=== PATIENT | male | born 1975 | race Caucasian/White ===

== ENCOUNTER → 2020-10-31 18:20 | Outpatient (CLI) | payer OTHER, SELFPAY ==
--- NOTE | 2020-10-31 18:25 | US_ITS ---
Exam: Localized ultrasound of the right neck. REASON FOR EXAM: Male, 45 years old. LUMP RIGHT NECK TECHNIQUE: Ultrasound evaluation of the area of interest was performed with real-time and static palacios-scale imaging. COMPARISON: None. FINDINGS: The area of clinical concern, there is a heterogeneous irregular lobulated generally hypoechoic mass measuring 2.0 x 1.8 x 1.3 cm. There is peripheral vascularity. Another adjacent hypoechoic structure measuring 2.1 cm may be a lymph node. No focal fluid collections. US/Head/Neck Soft Tissue IMPRESSION: Suspicious heterogeneous mixed echogenicity mass in the area of clinical concern. The appearance is not characteristic of a lymph node. Suggest further evaluation with contrast CT. Electronically Signed: Kenneth Lacey MD at 23:38 EST , Service support ,
== END ==
PROVIDERS: PCP Family Medicine; Referring Provider Family Medicine; Visit Provider Family Medicine
DX: R22.1 Localized swelling, mass and lump, neck (principal)
CPT/HCPCS: 76536

== ENCOUNTER 2020-11-05 10:48 | Emergency (ER) | payer OTHER, SELFPAY ==
[2020-11-05 10:49] VITALS: BP 152/89; PULSE 66; RESP 16; TEMP 36.5; O2SAT 97; BMI 30.8
--- NOTE | 2020-11-05 11:12 | CT_ITS ---
STUDY: CT SOFT TISSUE NECK WITH CONTRAST REASON FOR EXAM: Male, 45 years old. RIGHT POSTERIOR AURICULAR MASS SEEN ON US, AOI MARKED WITH BB, HAS DBS PLACED FOR TREMORS RADIATION DOSAGE (If Supplied By Facility): CTDIvol = ( 16.58 ) mGy, DLP = ( 534.50 ) mGycm TECHNIQUE: The patient was scanned in a multi-detector CT scanner. High resolution transaxial imaging was performed following intravenous administration of IV 75mL Isovue-370. Sagittal and coronal images were reconstructed. Individualized dose optimization techniques were used for this CT. COMPARISON: Ultrasound to FINDINGS: 1.2 x 1.6 cm oval mass of soft tissue attenuation within the posterior aspect of the right parotid gland worrisome for tumor namely pleomorphic adenoma. This corresponds to the patient''s palpable abnormality in the abnormality seen on recent ultrasound. Normal bilateral box toe stitcher spaces. Normal bilateral parapharyngeal spaces. Normal bilateral carotid spaces. Normal bilateral sublingual and submandibular glands and spaces. Normal visualized nasopharynx. Normal retropharyngeal space. Normal perivertebral space. Normal visualized bilateral faucial tonsils. The visualized tongue, tongue base and oropharynx are normal. The visualized cervical lymph nodes (levels I-) are within normal size limits, and maintain normal morphology. There is no demonstrated solid or cystic mass lesion. There is no abnormal contrast enhancement. Normal epiglottis, bilateral vallecula and hypopharynx. The pre-epiglottic and paraglottic adipose spaces are normal. Normal visualized bilateral piriform sinuses, aryepiglottic folds, vocal cords, and arytenoid-cricoid articulations. Normal subglottic trachea. Normal bilateral lobes of the thyroid gland. Normal visualized pulmonary apices. Normal visualized paranasal sinuses. Normal visualized cervical spine. CT/Soft Tissue Neck WITH Contrast IMPRESSION: 1.2 x 1.6 cm of the oval mass of the posterior aspect of the right parotid gland corresponding to the patient''s palpable abnormality worrisome for tumor, namely pleomorphic adenoma. Electronically Signed: Curtis Rea MD at 12:12 EST Tel , Service support ,
[2020-11-05 11:24] LABS: Absolute Lymphocyte Count 1.64 X10^3/uL (0.83-4.51); Absolute Neutrophil Count 2.7 X10^3/uL (2.0-7.7); Basophil# 0.03 X10^3/uL; Basophil% 0.6 % (0-1); Eosinophil# 0.15 X10^3/uL; Hematocrit 43.3 % (40-54); Hemoglobin 14.4 g/dL (13.0-16.5); Lymphocyte # 1.64 X10^3/ul (4.0); Lymphocyte % 32.5 % (19-41); Mean Corp Hgb Conc 33.3 g/dL (32-36); Mean Corpuscular Hgb 28.7 pg (27.0-32.0); Mean Corpuscular Volume 86.3 fL (80-94); Mean Platelet Vol. 10.4 fl (6.2-12.0); Monocyte# 0.51 X10^3/uL; Monocyte% 10.1 % (0-10); NRBC Flagged by Analyzer 0 % (0-5); Neutrophil # 2.69 X10^3/uL (2.7-7.7); Neutrophil % 53.4 % (47-70); Platelet Count 218 K/mm3 (150-450); RBC Distribution Width CV 12.2 % (11.6-14.6); RBC Distribution Width SD 38.1 fl (35.1-43.9); Red Blood Count 5.02 M/mm3 (4.6-6.2)
[2020-11-05 11:30] LABS: Anion Gap 7 (5-15); BUN 17 mg/dL (7-18); BUN/Creat Ratio 13.4 RATIO (10-20); Calcium,Total 9.4 mg/dL (8.5-10.1); Chloride 105 mmol/L (98-107); Creatinine, Serum 1.27 mg/dL (0.70-1.30); EST Glomerular Filtration Rate 65 mL/min (>60); Est Glom Filt Rate - Afr Amer 79 mL/min (>60); Glucose 122 mg/dL (74-106); Potassium 3.9 mmol/L (3.5-5.1); Sodium Level 139 mmol/L (136-145)
--- NOTE | 2020-11-05 12:29 | ED.VISSUMM ---
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 He reports that he has swelling behind his right earlobe that began approximately 5 years ago. Is gradually increased in size. There is no pain. There is no change with eating. He had an ultrasound that showed a mass and suggested a CT with IV contrast. Review of systems: General: No fever, chills, cold sweats. Cardiovascular: No chest pain, palpitations. Respiratory: No cough, shortness of breath, dyspnea on exertion. Gastrointestinal: No abdominal pain, nausea, vomiting, diarrhea, melena, or hematochezia. Genitourinary: No dysuria, frequency, hematuria. Skin: No rash. Neuro: No headache, numbness, weakness. Physical Examination: Vitals: Stable. Afebrile. General: Well-nourished and well-developed. Head: Normocephalic atraumatic. HEENT: Posterior to his right earlobe there is a 1.5 cm mass that is not tender. There is no overlying erythema. There is no pharyngeal erythema or tonsillar exudate. There is no evidence of sialoadenitis. Neck: Supple, no lymphadenopathy. No JVD. Nontender. Cardiovascular: Regular rate and rhythm. No murmurs. Respiratory: No respiratory distress. Clear to auscultation bilaterally. Abdominal: Soft, nontender, nondistended, normal bowel sounds. No guarding, rebound, or peritoneal signs. Back: Nontender. Extremities: Nontender, no edema. Skin: Normal color, no rash. Neurologic: Alert and oriented ?3. Cranial nerves II through XII are intact. Normal strength and sensation. Psych: Normal affect. Test Results: CBC shows monocytes of 10.1. Chem-7 shows a glucose 122. Clinical Impression(s) from Imaging Studies Soft Tissue Neck CT 11/05/20 11:12 IMPRESSION: 1.2 x 1.6 cm of the oval mass of the posterior aspect of the right parotid gland corresponding to the patient''s palpable abnormality worrisome for tumor, namely pleomorphic adenoma. Electronically Signed: Curtis Rea MD at 12:12 EST Tel , Service support , Emergency Department Course and Treatment: Patient is resting comfortably. He refused pain medications. Treatment Plan: Patient will be discharged instructions to follow-up with Dr. Frias or Dr. Menard as soon as possible. Return to the emergency department for any worsening symptoms. Disposition: To home in improved and stable condition. Impression: 1. Right parotid gland mass. This note was generated with [employer] dictation software. It may contain incorrect words, spelling, and punctuation that were not noted in review of the chart prior to signing ED Disposition - Plan for ED Patient: Instructions: ED PAROTID GLAND SWELLING Unk Cause Referrals: Gab Lebron MD [STAFF PHYSICIAN] - As soon as possible
[2020-11-05 12:38] VITALS: PULSE 67; RESP 16; O2SAT 98
== END 2020-11-05 12:39 | disposition home or self-care (01) ==
LOC: ED 11:46
PROVIDERS: Emergency Provider Emergency Medicine; PCP Family Medicine
DX: K11.8 Other diseases of salivary glands (principal)
CPT/HCPCS: 70491; 80048; 85025; 96360; 99283; J7040; Q9967; A4216

== ENCOUNTER → 2020-11-14 09:56 | Outpatient (CLI) | payer OTHER, SELFPAY ==
[2020-11-05 10:49] VITALS: BMI 30.8
--- NOTE | 2020-11-14 10:30 | ASPOS_PTH ---
PATIENT: KALINA DENT LOC: [facility] U#:[id number] AGE/SX: 50/M ROOM: RE11/14/[address]: Dr. Tom Lebron MD : 1975 BED: DIS: SPEC #: [id number] RECD: 11/14/20 12:49 STATUS: GERRI PINZON #: [id number] NELY: 11/14/20 10:[address]: Tom Lebron DEPT: CYTOLOGY RECD BY: Sandra Schwartz Tissues: Parotid gland, NOS Procedures: Surgery Specimen Level IV Cytology Other Fine Needle Asp on Site HEADER OPERATION: Right parotid mass PRE-OP DIAGNOSIS: Left parotid mass TISSUE SUBMITTED: Left parotid mass fluid for cytology DIAGNOSIS CYTOLOGY Fine needle aspiration, left parotid mass (smears and cell block): Pleomorphic adenoma. AM:yury 11/15/2020 COMMENT The specimen is evaluated at the time of biopsy by Dr. Campos. Immediate Evaluation = Pleomorphic adenoma. CYTOLOGY STUDY Slides are reviewed. CYTOLOGY GROSS Received is 0.2 ml of clear yellow material labeled with the patient's name, and designated right parotid mass. Three imprints and one pap are made from the submitted fluid and the rest is added to CytoLyt for cell block preparation. Submitted for cytology study. / AM:yury 11/14/2020 TC:5 CPT: 47427, 36829, 23430, 62772
== END ==
PROVIDERS: Referring Provider Otolaryngology; Visit Provider Otolaryngology
DX: D11.0 Benign neoplasm of parotid gland (principal)
CPT/HCPCS: 10021; 88161; 88305

== ENCOUNTER 2021-04-03 05:47 | Day surgery (SDC) | payer OTHER, SELFPAY ==
[2021-04-03] VITALS (7 sets, daily range): BP systolic 121–134; BP diastolic 71–89; PULSE 53–80; RESP 16; TEMP 36.1–36.3; O2SAT 92–97; BMI 31.5
[2021-04-03] MEDS: Lactated Ringers 1,000 ML 100 ML IV ×3 (06:52→11:31)
[2021-04-03 06:59] LABS: Hematocrit 39.9 % (40-54); Hemoglobin 13.4 g/dL (13.0-16.5); Mean Corp Hgb Conc 33.6 g/dL (32-36); Mean Corpuscular Hgb 29.3 pg (27.0-32.0); Mean Corpuscular Volume 87.3 fL (80-94); Mean Platelet Vol. 10.5 fl (6.2-12.0); Platelet Count 174 K/mm3 (150-450); RBC Distribution Width CV 12.6 % (11.6-14.6); RBC Distribution Width SD 39.8 fl (35.1-43.9); Red Blood Count 4.57 M/mm3 (4.6-6.2); White Blood Count 4.5 K/mm3 (4.4-11.0)
[2021-04-03] MEDS: Lidocaine 1% /Epi 1:100 (50ml) 50 ML VIAL (07:30)
--- NOTE | 2021-04-03 07:30 | PAR_PTH ---
PATIENT: KALINA DENT LOC: [facility] [place] U#:[id number] AGE/SX: 46/M ROOM: RE04/03/[address]: Dr. Tom Lebron MD : 1975 BED: DIS: 04/03/2021 SPEC #: [id number] RECD: 04/03/21 14:27 STATUS: GERRI PINZON #: [id number] NELY: 04/03/21 07:[address]: Tom Lebron DEPT: SURGICAL PATHOLOGY RECD BY: Zeenat Nciholas ENTERED: 04/04/21 12:03 SP TYPE: PAROTID OTHR DR: Dr. Brandin Cheema, DO Tissues: Parotid gland, NOS Procedures: Surgery Specimen Level V HEADER OPERATION: Parotidectomy, fat graft, SMAS flap PRE-OP DIAGNOSIS: Right parotid mass TISSUE SUBMITTED: Parotid mass MICROSCOPIC DIAGNOSIS Right parotid mass, excision: Pleomorphic adenoma. One out of one lymph node with no pathologic change. AM:yury 04/05/2021 COMMENT Reference is made to the patient's previous fine needle aspiration of left parotid mass ([id number]) in which a diagnosis of pleomorphic adenoma was rendered. MICROSCOPIC DESCRIPTION Slides are reviewed. GROSS DESCRIPTION Received in fixative is one container labeled with the patient's name and designated right parotid mass. The specimen consists of a round piece of glandular tissue weighing 5.7 gm and measuring 2.5 x 2.5 x 2 cm. Sections reveal a solid nodule measuring 2 x 1.5 x 1.5 cm. The entire specimen is submitted in six cassettes from one end to another end. / YUSEF:yury 04/04/21 TC:1 CPT: 83129
[2021-04-03] MEDS: Mupirocin Ointment 22gm Tube 1 APPLIC (12:25)
--- NOTE | 2021-04-03 12:37 | PCM.DC ---
Discharge Instructions Diet Discharge Diet: No restrictions Activity May shower in (days): 1 Dressing / Incision Call your doctor if your incision/area has: Sudden Increased Bleeding Additional Dressing/Incision Instructions:: wear abdominal binder. record SHANNAN output. sleep with head of bed elevated. Follow Up Care Please Follow Up With: alec When: Test Results: Test results from this visit will be discussed in further detail at your follow-up appointment, if applicable. Discharge Plan Admission Attending Provider: Gab Lebron Primary Care Provider: Brandin Cheema Discharge Orders/Prescriptions Prescriptions: No Action NK RF: 0
--- NOTE | 2021-04-03 13:10 | SUR.PHASEI ---
pt with 1 cristina to right neck from surgery. no cristina on abdomen
--- NOTE | 2021-04-03 14:12 | OP.PCM_ITS ---
Problems Associated Problem List Diagnoses (1) Mass of right parotid gland: Report of Operation Date of Procedure: 04/03/21 Pre-Operative Diagnosis: parotid mass, right Post-Operative Diagnosis: parotid mass, right Surgery/Procedure Performed:: 1. right superficial parotidectomy 2. right superficial musculoaponeurotic system flap 3. abdominal fat graft Surgeon: Gab Lebron litigation coordinator: Veronica Mercado Type of Anesthesia: General Specimen's removed: right parotid mass Description of Procedure: Parotidectomy on the day of the procedure, after appropriate informed consent was obtained, the patient was brought to the operating room and placed in supine position on the operating table. he was placed under general endotracheal anesthesia by the anesthesiologist. the endotracheal tube was secured. facial nerve electrodes were placed on the right side. the face and left lower quadrant abdominal skin were prepped and draped in sterile fashion. the preauricular area and neck were injected with lidocaine/epinephrine. a right modified antionette incision was made with a 15 blade. the preauricular skin was dissected in an intra-fat plane. a 15 blade was used to isolate the superficial musculoaponeurotic system. this was connected with the platysma with a metzenbaum scissor. the parotid- masseteric fascia was isolated. all planes were taken 5 cm anterior to the tragus.. the inferior parotid was freed up from the sternocleidomastoid muscle. the posterior belly of the digastric was located. the tragal pointer was dissected in a supraperichondrial plane with an iris scissor. surrounding tissue was carefully opened and the main trunk of the facial nerve was located with a begum dissector 1cm inferior and deep to the tragal pointer. this was stimulated for confirmation. the trunk was dissected to the pes anserinus. the upper division was located but not dissected given the inferior location of the tumor. the lower division was then dissected to facilitate removal. the lower division branches were individually dissected and the mass was removed from superiorly to inferiorly. a 4cm incision was made in the left lower quadrant with a 15 blade. using an allis clamp and metsenbaum scissor, a 3x2 cm abdominal fat graft was obtained. hemostasis was achieved with the bipolar. campers fascia was not violated. a malvin was placed and the incision was closed with vicryl and monocryl. the fat graft was placed in the parotidectomy defect. this was carefully sutured at multiple points for stability, avoiding the facial nerve. the superficial musculoaponeurotic system flap was closed over the flap with 4-0 vicryl. a julio césar gonsalez drain was placed and sutured. the antionette incision was closed with vicryl and nylon. the patient was rotated 90 degrees toward the anesthesiologist and extubated uneventfully. he was transferred to the PACU in stable condition. veronica mercado was scrubbed for the entire procedure and was critical in its completion.
[2021-04-03] MEDS: HYDROcodone Bitartrate/Apap 5/325 Tablet PO (14:23)
== END 2021-04-03 15:07 | disposition home or self-care (01) ==
LOC: SDC 05:47 → AC 05:48
PROVIDERS: Anesthesiology; PCP Family Medicine; Referring Provider Otolaryngology; Visit Provider Otolaryngology
PROC: (CPT 15730; principal; 2021-04-03 07:00)
DX: D11.0 Benign neoplasm of parotid gland (principal); M19.90 Unspecified osteoarthritis, unspecified site; G47.30 Sleep apnea, unspecified; Z86.718 Personal history of other venous thrombosis and embolism; Z87.891 Personal history of nicotine dependence
CPT/HCPCS: 00100; 15730; 15769; 42415; 85027; 87426; 88305; 88307; J7120; J2405

== ENCOUNTER → 2025-08-31 | Outpatient (CLI) | payer OTHER, SELFPAY ==
--- NOTE | 2025-08-31 12:44 | RAD_ITS ---
PROCEDURE: SHOULDER MIN 2 VIEWS 08/31/2025 REASON FOR EXAM: PAIN TECHNIQUE: Procedure Code: [facility] Modality: DX Procedure: SHOULDER MIN 2 VIEWS Laterality: Left COMPARISON: None FINDINGS: Four views of the left shoulder were obtained. Bones: There are no fractures or dislocations. There is normal bony mineralization of the osseous structures. No osteolytic or osteoblastic lesions are seen. Joints: The acromioclavicular joint demonstrates very mild arthritic changes. Very mild arthritic changes are seen involving the glenohumeral joint. The humeral acromial space and coracoclavicular spaces are well-maintained. Soft tissues: Unremarkable Other: The visualized left ribs and lung are unremarkable. Cardiac pacemaker device is identified in the left pectoral region. RAD/Shoulder min 2 Views IMPRESSION: Very mild osteoarthritic changes are noted involving the left acromioclavicular joint and glenohumeral joint. Reading Location: [id number]
== END | disposition home or self-care (01) ==
LOC: RAD 12:42
PROVIDERS: PCP Family Medicine; Referring Provider Family Medicine; Visit Provider Family Medicine
DX: M25.512 Pain in left shoulder (principal)
CPT/HCPCS: 73030